=== PATIENT | female | born 1990 | race Two or more races ===

== ENCOUNTER 2023-07-31 18:41 | Emergency (ER) | payer BC ==
[~2023-07-31] VITALS: Ht 165.1 cm; Wt 113.4 kg
[2023-07-31] MEDS ORDERED: PRENATABS RX T1 EACH (19:13)
[2023-07-31 19:44] LABS: HEMATOCRIT 37.5 % (36.0-45.00); HEMOGLOBIN 12.7 g/dL (12.0-15.00); MEAN CELL VOLUME 79.8 fL (80.00-100.00); MEAN CORPUSCULAR HGB CONC 33.9 g/dl (32.0-36.0); PLATELET COUNT 336 K/uL (150-450); RED CELL DISTRIBUTION WIDTH 15.1 % (11.5-14.5)
[2023-07-31 19:45] LABS: URINE APPEARANCE Cloudy; URINE BILIRRUBIN Negative (NEGATIVE); URINE BLOOD Large; URINE COLOR Yellow; URINE GLUCOSE Negative (NEGATIVE); URINE LEUKOCYTE Negative; URINE NITRATE Negative; URINE PROTEIN Trace (NEGATIVE); URINE UROBILINOGEN 0.2 E.U./dl
[2023-07-31 19:46] LABS: URINE BACTERIA 1961.6 uL (0.0-1933); URINE EPITHELIAL CELLS 40.9 uL (0.0-38.8); URINE RBC 440.6 uL (0.0-20.8); URINE WBC 16.8 uL (0.0-23.2)
[2023-07-31 20:00] LABS: URINE CRYSTALS FEW /HPF; URINE MUCUS MODERATE
== END 2023-08-01 03:38 ==
LOC: ER 18:42
PROVIDERS: General Practice
DX: O20.8 Other hemorrhage in early pregnancy (principal); Z3A.01 Less than 8 weeks gestation of pregnancy